=== PATIENT | female | born 1950 | race Caucasian/White ===

== ENCOUNTER 2017-05-18 15:14 | Inpatient (IN) | payer MEDICAID ==
--- NOTE | ~2017-05-18 | HEMODYNAMI ---
PATIENT:ELIZABETH ROBLES MEDICAL RECORD: [id number] : 54 LOCATION:[place] [address] ADMISSION DATE: 05/18/17 Generatedon:05/28/201713:05 Patient name: ELIZABETH ROBLES Patient #: [id number] SSN: : 1950 Date of study: 05/28/2017 Page: Of Hemodynamic Procedure Report Patient Data Patient Demographics Procedure consent was obtained First Name: ELIZABETH Gender: Female Last Name: MARGARET : 1950 Patient #: [id number] Age: 67 year(s) Race: Unknown Additional ID: [id number] Contact details [address]: [address] [place] [address] State: [place] City: [place] Zip code: [address] Past Medical History Allergies Allergen Reaction Date Comments Reported Sulfa drugs 05/28/2017 Admission Admission Data Admission Date: 05/18/2017 Admission Time: 21:33 Room #: [facility] Weight (lbs.): 160 Weight (kg.): 72.57 Procedure Procedure Types Cath Procedure Peripheral Cath Diagnostic Procedure Cath Peripheral Miscellaneous PARACENTESIS WITH GUIDE Procedure Description Procedure Date Procedure Date: 05/28/2017 Procedure Start Time: 12:20 Procedure Staff Name Function Clive Marinelli MD Performing Physician Jocy Bedolla RT Competitive Athlete Jocy Bedolla RT Monitor Cherie Lutz RN Nurse Cyril Garcia Nurse Procedure Medications Medication Administration Route Dosage Fentanyl I.V. 25 mcg Zofran I.V. 4 mg Fentanyl I.V. 25 mcg Hemodynamics Rest Heart Rate: 25 (bpm) Snapshots Pre Cath Intra NCS Post Cath Vital Signs Time Heart Resp SPO2 etCO2 NIBP Rhythm Pain Status Sedation Rate (ipm) (%) (mmHg) (mmHg) Level (bpm) 12:13:50 56 14 99 12 100/49(76) SB 0 (11) , No 10(A) pain 12:18:02 55 14 100 20.4 111/48(90) SB 0 (11) , No 10(A) pain 12:22:18 55 14 97 27.9 107/52(81) SB 0 (11) , No 10(A) pain 12:26:34 54 4 94 31.7 102/41(74) SB 2 (11) , 9(A) Uncomfortable 12:30:47 54 10 95 20.3 97/45(72) SB 0 (11) , No 9(A) pain 12:34:56 53 11 92 21.1 92/45(68) SB 0 (11) , No 9(A) pain 12:39:04 52 13 96 18.8 90/48(65) SB 0 (11) , No 9(A) pain 12:43:14 51 10 94 24.8 85/40(67) SB 0 (11) , No 9(A) pain 12:47:20 52 10 94 22.6 90/44(66) SB 0 (11) , No 9(A) pain 12:51:28 50 10 95 21.1 95/44(65) SB 0 (11) , No 9(A) pain 12:55:40 50 10 95 15.8 88/42(65) SB 0 (11) , No 9(A) pain 12:59:49 50 10 96 15 90/37(69) SB 0 (11) , No 9(A) pain 13:03:24 51 10 97 14.3 94/42(73) SB 0 (11) , No 9(A) pain Medications Time Medication Route Dose Verified Delivered Reason Notes Effectiven ess by by 12:20:59 Fentanyl I.V. 25 Clive Nam pain [facility] [place] Radha Marinelli MD 12:25:11 Fentanyl I.V. 25 Clive Nam pain [facility] [place] Radha Marinelli MD 12:27:13 Zofran I.V. 4 mg Clive Nam [facility] Radha Marinelli MD Procedure Log Time Note 11:58:57 Patient Weight : 160 lbs 12:01:26 Time tracking: Regular hours 12:02:27 Plan of Care:Hemodynamics will remain stable., Cardiac rhythm will remain stable., Comfort level will be maintained., Respiratory function will remain adequate., Patient/ family verbilizes understanding of procedure., Procedure tolerated without complication., Recovers from procedure without complications.. 12:04:29 Patient received from [place] to IR Alert and oriented. Tansferred to table in Supine position. 12:04:31 Correct patient and procedure confirmed by team. 12:04:37 Signed procedure consent form obtained from patient. 12:04:47 H&P Date Dictated: 05/28/2017 Within 30 days and on chart.. 12:04:50 Pre-procedure instructions explained to patient. 12:04:50 Pre-op teaching completed and patient verbalized understanding. 12:04:53 Family in waiting room. 12:04:58 Patient NPO since Breakfast. 12:05:11 Patient allergic to Sulfa drugs 12:05:16 Is patient on blood thinner?Yes 12:05:22 ACC The patient was administered the following blood thiners within the last 24 hours: ACCAspirin, ACCPlavix 12:05:26 Patient diabetic? Yes. 12:05:28 If diabetic: On Metformin? No 12:05:32 - 12:05:34 ----Pre-sedation anethsthesia assessment.---- 12:05:40 Previous problem with sedation/anesthesia? No ? 12:05:43 Snore? Yes 12:05:45 Sleep apnea? No 12:05:47 Deviated septum? No 12:05:49 Opens mouth fully? Yes 12:05:53 Sticks out tongue? Yes 12:05:58 Airway obstruction? No ?Heart ds. yes, chf 12:06:47 IV patent on arrival in left wrist with 0.9% NaCl at [facility]. 12:07:03 Right abdomen area was prepped with chlora-prep and draped in sterile fashion 12:12:34 ECG and BP/O2 sat monitors applied to patient. 12:12:36 Vital chart was started 12:12:37 Baseline sample Acquired. 12:12:41 Full Disclosure recording started 12:12:42 - 12:19:05 Physician arrived 12:20:23 --------ALL STOP TIME OUT------ 12:20:23 Final Timeout: patient, procedure, and site verified with staff and physician. All members of the team are in agreement. 12:20:34 Procedure started. 12:20:59 Fentanyl 25 mcg I.V. was administered by Cyril Garcia; pain; 12:25:11 Fentanyl 25 mcg I.V. was administered by Cyril Garcia; pain; 12:27:13 Zofran 4 mg I.V. was administered by Cyril Garcia; nausea; 12:28:16 [id number] 8FR CATH DRAIN TRAY opened to sterile field. 12:28:30 CONNECTING TUBE FOR DRAINAGE BAG ([id number]) opened to sterile field. 12:56:01 Tegaderm 4 x 4 ([id number]) opened to sterile field. 12:56:15 Dermabond Pen opened to sterile field. 13:04:18 13.5 liters drained 13:05:00 Procedure ended.(Physican Out) 13:05:07 Procedure and supply charges have been captured, reviewed, submitted an d are correct. 13:05:56 Vital chart was stopped Device Usage Item Name Manufacture Quantity Catalog Hospital Part Current Mini mal Lot# / Number Charge Number Stock Stock Serial# Code [id number] CareFusion 1 [id number] 5 8FR CATH DRAIN TRAY CONNECTING TUBE [place] 1 [id number] 5 FOR DRAINAGE Scientific BAG ([id number]) Tegaderm 4 x 4 3M 1 [id number] 5 ([id number]) Dermabond Pen Ethicon 1 [id number] 5 Signature Audit [place] Stage Time Signature Unsigned Intra-Procedure 05/28/2017 Jocy Bedolla 1:05:53 PM RT(R) Signatures Monitor : Jocy Bedolla RT Signature : Date : Time : [place] [address] [place] [address]
[2017-05-19 02:42] VITALS: BMI 29.7
[2017-05-19 03:51] VITALS: BP 93/45
[2017-05-19 06:33] VITALS: BP 90/43
[2017-05-19 06:40] LABS: BASOPHILS 0.2 % (0-2); EOSINOPHILS 4.3 % (0-7); HEMATOCRIT 30.2 % (36.0-48.0); HEMOGLOBIN 9.3 g/dL (12-16); IMMATURE GRANULOCYTES 0.2 % (0-5); LYMPHOCYTES 9.5 % (15-50); MCH 28.3 pg (26.0-34.0); MCHC 30.8 g/dL (31.0-37.0); MCV 91.8 fL (80.0-100.0); MEAN PLATELET VOLUME 9.6 fL (7.4-10.4); MONOCYTES 8.6 % (2-11); NEUTROPHILS 77.2 % (40-80); PLATELET COUNT 154 10x3/uL (130-400); RBC 3.29 10x6/uL (4.00-5.40); RDW 13.9 % (11.5-14.5); WBC 5.4 10x3/uL (4.8-10.8)
[2017-05-19 06:59] LABS: ALBUMIN 2.8 g/dL (3.4-5.0); ANION GAP 13.7 mmol/L (8-16); BILIRUBIN - TOTAL 0.44 mg/dL (0.2-1.3); CALCIUM 8.4 mg/dL (8.5-10.1); CARBON DIOXIDE 22.5 mmol/L (21.0-32.0); CREATININE - SERUM 2.5 mg/dL (0.6-1.3)
[2017-05-19 07:01] LABS: POTASSIUM - SERUM 6.2 mmol/L (3.5-5.1)
[2017-05-19 09:46] VITALS: BP 104/52
[2017-05-19] MEDS ORDERED: PLAVIX75 MG PO (11:03)
[2017-05-19] MEDS ORDERED: SYNTHROID175 MCG PO (12:40)
[2017-05-19] MEDS ORDERED: TORSEMIDE20 MG PO (12:41)
[2017-05-19] MEDS ORDERED: LISINOPRIL2.5 MG PO (12:41)
[2017-05-19] MEDS ORDERED: ALDACTONE50 MG PO (12:42)
[2017-05-19] MEDS ORDERED: LIPITOR20 MG PO (12:42)
[2017-05-19 14:05] LABS: APPEARANCE CLEAR (CLEAR); BILIRUBIN NEGATIVE (NEGATIVE); COLOR YELLOW (YELLOW); GLUCOSE NEGATIVE (NEGATIVE); KETONE NEGATIVE (NEGATIVE); NITRITE NEGATIVE (NEGATIVE); PROTEIN NEGATIVE (NEGATIVE); UROBILINOGEN NORMAL (NORMAL)
[2017-05-19 16:03] LABS: ALBUMIN 3.3 g/dL (3.4-5.0); BILIRUBIN - TOTAL 0.34 mg/dL (0.2-1.3); CALCIUM 8.3 mg/dL (8.5-10.1); CARBON DIOXIDE 23.1 mmol/L (21.0-32.0); CHOL - HDL RATIO 3.6 ratio (2.3-4.1); COMPLEMENT C4 14.3 mg/dL (17.4-52.2); CREATININE - SERUM 2.7 mg/dL (0.6-1.3); PHOSPHOROUS 4.5 mg/dL (2.5-4.9); PROTEIN - SERUM 5.8 g/dL (6.4-8.2)
[2017-05-19 16:09] VITALS: BP 90/50
[2017-05-19 16:20] LABS: ANION GAP 13.8 mmol/L (8-16)
[2017-05-19 16:21] LABS: POTASSIUM - SERUM 6.9 mmol/L (3.5-5.1)
[2017-05-19 20:30] VITALS: BP 84/50
[2017-05-20 00:30] VITALS: BP 78/54
[2017-05-20 04:30] VITALS: BP 80/50
[2017-05-20 05:11] LABS: HEMATOCRIT 29.2 % (36.0-48.0); HEMOGLOBIN 8.9 g/dL (12-16); MCH 28.7 pg (26.0-34.0); MCHC 30.5 g/dL (31.0-37.0); MCV 94.2 fL (80.0-100.0); MEAN PLATELET VOLUME 10.2 fL (7.4-10.4); PLATELET COUNT 137 10x3/uL (130-400); WBC 4.5 10x3/uL (4.8-10.8)
[2017-05-20 05:23] LABS: BASOPHILS 1 % (0-2); EOSINOPHILS 5 % (0-7); LYMPHOCYTES 10 % (15-50); MONOCYTES 16 % (2-11); NEUTROPHILS 68 % (40-80)
[2017-05-20 05:24] LABS: ALBUMIN 2.9 g/dL (3.4-5.0); ANION GAP 13.6 mmol/L (8-16); BILIRUBIN - TOTAL 0.4 mg/dL (0.2-1.3); CALCIUM 8.6 mg/dL (8.5-10.1); CREATININE - SERUM 2.9 mg/dL (0.6-1.3); PLATELET ESTIMATE NORMAL; PROTEIN - SERUM 5.7 g/dL (6.4-8.2)
[2017-05-20 05:36] LABS: POTASSIUM - SERUM 6.6 mmol/L (3.5-5.1)
[2017-05-20 08:32] VITALS: BP 89/40
[2017-05-20 11:46] VITALS: BP 81/60
[2017-05-20 13:21] VITALS: BMI 41.6
[2017-05-20 15:26] VITALS: BP 89/50
[2017-05-20 20:43] VITALS: BP 89/36
[2017-05-21] VITALS: BP 91/33
[2017-05-21 04:00] VITALS: BP 86/31
[2017-05-21 06:34] LABS: ALBUMIN 2.6 g/dL (3.4-5.0); ANION GAP 14.8 mmol/L (8-16); BILIRUBIN - TOTAL 0.3 mg/dL (0.2-1.3); CREATININE - SERUM 3.3 mg/dL (0.6-1.3); POTASSIUM - SERUM 5.8 mmol/L (3.5-5.1); PROTEIN - SERUM 5.5 g/dL (6.4-8.2)
[2017-05-21 06:59] LABS: HEMATOCRIT 28.6 % (36.0-48.0); HEMOGLOBIN 9.1 g/dL (12-16); LYMPHOCYTES 7.9 % (15-50); MCH 29.3 pg (26.0-34.0); MCHC 31.8 g/dL (31.0-37.0); MEAN PLATELET VOLUME 9.8 fL (7.4-10.4); NEUTROPHILS 77.8 % (40-80); PLATELET COUNT 169 10x3/uL (130-400); RBC 3.11 10x6/uL (4.00-5.40); RDW 14.1 % (11.5-14.5)
[2017-05-21 09:13] VITALS: BP 87/44
[2017-05-21 13:46] VITALS: BP 90/21
[2017-05-21 15:21] LABS: HEPATITIS C ANTIBODY 4.8 (0.0-0.9)
[2017-05-21 16:59] LABS: CREATININE - URINE 164.5 mg/dL (30-125); PRO/CRE RATIO URINE 0.8 mg/g; PROTEIN - URINE 128.2 mg/dL (0.0-11.9)
[2017-05-21 17:46] VITALS: BP 74/25
[2017-05-21 20:00] VITALS: BP 77/31
[2017-05-22] VITALS: BP 91/41
[2017-05-22 04:00] VITALS: BP 92/54
[2017-05-22 06:00] LABS: BASOPHILS 0.2 % (0-2); EOSINOPHILS 3.4 % (0-7); HEMATOCRIT 27.7 % (36.0-48.0); HEMOGLOBIN 8.7 g/dL (12-16); IMMATURE GRANULOCYTES 0.2 % (0-5); MCH 28.4 pg (26.0-34.0); MCHC 31.4 g/dL (31.0-37.0); MCV 90.5 fL (80.0-100.0); MEAN PLATELET VOLUME 9.9 fL (7.4-10.4); MONOCYTES 9.6 % (2-11); NEUTROPHILS 75.6 % (40-80); PLATELET COUNT 169 10x3/uL (130-400); RBC 3.06 10x6/uL (4.00-5.40); RDW 13.7 % (11.5-14.5); WBC 4.7 10x3/uL (4.8-10.8)
[2017-05-22 06:22] LABS: APTT 34.1 SECONDS (22.8-39.4); INR 1.25 (0.85-1.17); PROTIME 15.2 SECONDS (11.6-15.0)
[2017-05-22 06:25] LABS: % SATURATION 5 % (15-55); IRON 13 ug/dl (35-150); TOTAL IRON BIND CAPACITY 237 ug/dl (260-445); UNSAT IRON BIND CAPACITY 224 ug/dl (150-375)
[2017-05-22 06:35] LABS: ALBUMIN 2.5 g/dL (3.4-5.0); BILIRUBIN - TOTAL 0.27 mg/dL (0.2-1.3); CALCIUM 7.8 mg/dL (8.5-10.1); CARBON DIOXIDE 23.2 mmol/L (21.0-32.0); CHOL - HDL RATIO 4.3 ratio (2.3-4.1); CREATININE - SERUM 3.2 mg/dL (0.6-1.3); LDL-HDL RATIO 2.6 ratio (1.5-3.5); PRE-ALBUMIN 9.9 mg/dL (18.0-35.7); PROTEIN - SERUM 5.3 g/dL (6.4-8.2)
[2017-05-22 06:36] LABS: ANION GAP 14.5 mmol/L (8-16); POTASSIUM - SERUM 4.7 mmol/L (3.5-5.1)
[2017-05-22 07:29] LABS: ANA REFLEX - DBL STRANDED DNA 3 IU/mL (0-9); ANA REFLEX - DIRECT Negative (Negative)
[2017-05-22 09:10] VITALS: BP 111/42
[2017-05-22 10:20] LABS: SPE - A/G RATIO 1.4 (0.7-1.7); SPE - ALBUMIN 3.3 g/dL (2.9-4.4); SPE - ALPHA-1 GLOBULIN 0.3 g/dL (0.0-0.4); SPE - ALPHA-2 GLOBULIN 0.6 g/dL (0.4-1.0); SPE - BETA GLOBULIN 0.7 g/dL (0.7-1.3); SPE - GAMMA GLOBULIN 0.8 g/dL (0.4-1.8); SPE - M-SPIKE Not Observed g/dL (Not Observed); SPE - TOTAL PROTEIN 5.7 g/dL (6.0-8.5)
[2017-05-22 10:20] LABS: UPE RAND - ALBUMIN 15.6 % (()); UPE RAND - ALPHA 1 GLOBULIN 5.3 % (()); UPE RAND - ALPHA 2 GLOBULIN 9.9 % (()); UPE RAND - BETA GLOBULIN 18.2 % (()); UPE RAND - GAMMA GLOBULIN 50.9 % (())
[2017-05-22 12:16] VITALS: BP 93/47
[2017-05-22 16:45] VITALS: BP 100/46
[2017-05-22 20:00] VITALS: BP 87/36
[2017-05-23 05:30] LABS: BASOPHILS 0.4 % (0-2); EOSINOPHILS 5.2 % (0-7); HEMATOCRIT 28.4 % (36.0-48.0); HEMOGLOBIN 8.9 g/dL (12-16); IMMATURE GRANULOCYTES 0.4 % (0-5); LYMPHOCYTES 10.7 % (15-50); MCH 28.4 pg (26.0-34.0); MCHC 31.3 g/dL (31.0-37.0); MCV 90.7 fL (80.0-100.0); MEAN PLATELET VOLUME 9.8 fL (7.4-10.4); MONOCYTES 9.1 % (2-11); NEUTROPHILS 74.2 % (40-80); PLATELET COUNT 180 10x3/uL (130-400); RBC 3.13 10x6/uL (4.00-5.40); RDW 13.9 % (11.5-14.5); WBC 5.4 10x3/uL (4.8-10.8)
[2017-05-23 05:42] LABS: ALBUMIN 2.5 g/dL (3.4-5.0); ANION GAP 14.7 mmol/L (8-16); BILIRUBIN - TOTAL 0.34 mg/dL (0.2-1.3); CALCIUM 7.8 mg/dL (8.5-10.1); CARBON DIOXIDE 23.8 mmol/L (21.0-32.0); CREATININE - SERUM 2.9 mg/dL (0.6-1.3); POTASSIUM - SERUM 4.5 mmol/L (3.5-5.1); PROTEIN - SERUM 5.1 g/dL (6.4-8.2)
[2017-05-23 06:12] VITALS: BP 89/44
[2017-05-23 08:38] VITALS: BP 103/47
[2017-05-23 10:19] LABS: ANA REFLEX - DIRECT Negative (Negative)
[2017-05-23 12:30] VITALS: BP 91/50
[2017-05-23 18:09] LABS: EBV VIRAL CAPSID AB IGG >600.0 U/mL (0.0-17.9); EBV VIRAL CAPSID AB IGM <36.0 U/mL (0.0-35.9)
[2017-05-23 20:00] VITALS: BP 95/50
[2017-05-24 04:00] VITALS: BP 100/50
[2017-05-24 05:18] LABS: ALBUMIN 2.8 g/dL (3.4-5.0); ANION GAP 14.9 mmol/L (8-16); BILIRUBIN - TOTAL 0.4 mg/dL (0.2-1.3); CARBON DIOXIDE 24.1 mmol/L (21.0-32.0); CREATININE - SERUM 2.7 mg/dL (0.6-1.3); PROTEIN - SERUM 6.1 g/dL (6.4-8.2)
[2017-05-24 05:20] LABS: BASOPHILS 0.2 % (0-2); EOSINOPHILS 5.2 % (0-7); HEMATOCRIT 30.6 % (36.0-48.0); HEMOGLOBIN 9.6 g/dL (12-16); IMMATURE GRANULOCYTES 0.3 % (0-5); LYMPHOCYTES 10.2 % (15-50); MCH 28.5 pg (26.0-34.0); MCHC 31.4 g/dL (31.0-37.0); MCV 90.8 fL (80.0-100.0); MEAN PLATELET VOLUME 9.3 fL (7.4-10.4); MONOCYTES 7.3 % (2-11); NEUTROPHILS 76.8 % (40-80); PLATELET COUNT 197 10x3/uL (130-400); RBC 3.37 10x6/uL (4.00-5.40); RDW 13.8 % (11.5-14.5); WBC 6.3 10x3/uL (4.8-10.8)
[2017-05-24 08:48] VITALS: BP 172/90
[2017-05-24 09:03] VITALS: BMI 41.6
[2017-05-24 11:46] VITALS: BP 101/50
[2017-05-24 16:35] VITALS: BP 96/49
[2017-05-24 20:42] VITALS: BP 85/33
[2017-05-25 01:43] VITALS: BP 102/65
[2017-05-25 04:00] LABS: BASOPHILS 0.2 % (0-2); EOSINOPHILS 6.3 % (0-7); HEMATOCRIT 27.2 % (36.0-48.0); HEMOGLOBIN 8.6 g/dL (12-16); IMMATURE GRANULOCYTES 0.2 % (0-5); LYMPHOCYTES 11.3 % (15-50); MCH 28.6 pg (26.0-34.0); MCHC 31.6 g/dL (31.0-37.0); MCV 90.4 fL (80.0-100.0); MEAN PLATELET VOLUME 9.7 fL (7.4-10.4); MONOCYTES 9.1 % (2-11); NEUTROPHILS 72.9 % (40-80); PLATELET COUNT 166 10x3/uL (130-400); RBC 3.01 10x6/uL (4.00-5.40); RDW 13.9 % (11.5-14.5)
[2017-05-25 04:01] LABS: INR 1.15 (0.85-1.17); PROTIME 14.3 SECONDS (11.6-15.0); WBC 4.6 10x3/uL (4.8-10.8)
[2017-05-25 04:16] LABS: ALBUMIN 2.6 g/dL (3.4-5.0); ANION GAP 12.9 mmol/L (8-16); BILIRUBIN - TOTAL 0.26 mg/dL (0.2-1.3); CALCIUM 8.2 mg/dL (8.5-10.1); CARBON DIOXIDE 23.4 mmol/L (21.0-32.0); CREATININE - SERUM 2.7 mg/dL (0.6-1.3); POTASSIUM - SERUM 4.3 mmol/L (3.5-5.1); PROTEIN - SERUM 5.5 g/dL (6.4-8.2)
[2017-05-25 05:10] VITALS: BP 100/60
[2017-05-25 08:16] VITALS: BP 106/70
[2017-05-25 11:18] VITALS: BP 107/70
[2017-05-25 15:33] VITALS: BP 110/72
[2017-05-25 22:15] VITALS: BP 90/60
[2017-05-26 01:30] VITALS: BP 88/40
[2017-05-26 03:59] LABS: BASOPHILS 0.2 % (0-2); EOSINOPHILS 5.1 % (0-7); HEMATOCRIT 28.8 % (36.0-48.0); HEMOGLOBIN 8.9 g/dL (12-16); IMMATURE GRANULOCYTES 0.2 % (0-5); LYMPHOCYTES 10.5 % (15-50); MCH 28.2 pg (26.0-34.0); MCHC 30.9 g/dL (31.0-37.0); MCV 91.1 fL (80.0-100.0); MEAN PLATELET VOLUME 9.4 fL (7.4-10.4); MONOCYTES 8.2 % (2-11); NEUTROPHILS 75.8 % (40-80); RBC 3.16 10x6/uL (4.00-5.40); RDW 13.8 % (11.5-14.5); WBC 5.1 10x3/uL (4.8-10.8)
[2017-05-26 04:00] LABS: PLATELET COUNT 116 10x3/uL (130-400)
[2017-05-26 04:35] LABS: ALBUMIN 2.7 g/dL (3.4-5.0); ANION GAP 15.4 mmol/L (8-16); BILIRUBIN - TOTAL 0.29 mg/dL (0.2-1.3); CALCIUM 8.2 mg/dL (8.5-10.1); CARBON DIOXIDE 22.1 mmol/L (21.0-32.0); CREATININE - SERUM 3.2 mg/dL (0.6-1.3); POTASSIUM - SERUM 4.5 mmol/L (3.5-5.1); PROTEIN - SERUM 5.8 g/dL (6.4-8.2)
[2017-05-26 06:20] VITALS: BP 86/38
[2017-05-26 08:33] VITALS: BP 110/82
[2017-05-26 11:07] LABS: MITOCHONDRIAL ANTIBODY 5.6 Units (0.0-20.0); SMOOTH MUSCLE ABS (ACTIN) 20 Units (0-19)
[2017-05-26 16:29] VITALS: BP 110/76
[2017-05-26 18:23] LABS: CREATININE - URINE 150.2 mg/dL (30-125)
[2017-05-26 18:33] LABS: APPEARANCE TURBID (CLEAR); BILIRUBIN NEGATIVE (NEGATIVE); COLOR YELLOW (YELLOW); GLUCOSE NEGATIVE (NEGATIVE); KETONE NEGATIVE (NEGATIVE); NITRITE NEGATIVE (NEGATIVE); PROTEIN 2+ mg/dL (NEGATIVE); UROBILINOGEN NORMAL (NORMAL)
[2017-05-26 18:37] LABS: AMORPHOUS SEDIMENT >1+ /lpf (NONE SEEN); BACTERIA MANY /hpf (NONE SEEN); GRANULAR CAST OCC /lpf (NONE SEEN); MUCUS <1+ /lpf (NONE SEEN); RED CELL CAST 0-5 /lpf (NONE SEEN); RED CELLS - URINE >50 /hpf (0-5); WHITE CELLS - URINE >50 /hpf (0-5); YEAST >1+ /hpf (NONE SEEN)
[2017-05-26 18:41] LABS: ALBUMIN 3.3 g/dL (3.4-5.0); ANION GAP 20.1 mmol/L (8-16); CALCIUM 8.1 mg/dL (8.5-10.1); CARBON DIOXIDE 17.7 mmol/L (21.0-32.0); CREATININE - SERUM 3.5 mg/dL (0.6-1.3); PHOSPHOROUS 5.3 mg/dL (2.5-4.9); POTASSIUM - SERUM 4.8 mmol/L (3.5-5.1)
[2017-05-26 20:00] VITALS: BP 105/50
[2017-05-27] VITALS (7 sets, daily range): BP systolic 80–95; BP diastolic 36–60
[2017-05-27 05:40] LABS: BASOPHILS 0.5 % (0-2); EOSINOPHILS 5.9 % (0-7); HEMATOCRIT 25.3 % (36.0-48.0); HEMOGLOBIN 7.9 g/dL (12-16); IMMATURE GRANULOCYTES 0.2 % (0-5); LYMPHOCYTES 12.3 % (15-50); MCH 28.4 pg (26.0-34.0); MCHC 31.2 g/dL (31.0-37.0); MEAN PLATELET VOLUME 8.9 fL (7.4-10.4); MONOCYTES 10.3 % (2-11); NEUTROPHILS 70.8 % (40-80); PLATELET COUNT 124 10x3/uL (130-400); RBC 2.78 10x6/uL (4.00-5.40); RDW 13.8 % (11.5-14.5); WBC 4.1 10x3/uL (4.8-10.8)
[2017-05-27 05:58] LABS: ALBUMIN 3.1 g/dL (3.4-5.0); BILIRUBIN - TOTAL 0.4 mg/dL (0.2-1.3); CALCIUM 7.6 mg/dL (8.5-10.1); CARBON DIOXIDE 21.6 mmol/L (21.0-32.0); CREATININE - SERUM 3.7 mg/dL (0.6-1.3); POTASSIUM - SERUM 4.6 mmol/L (3.5-5.1); PROTEIN - SERUM 5.5 g/dL (6.4-8.2)
[2017-05-27 07:54] LABS: INR 1.3 (0.85-1.17); PROTIME 15.8 SECONDS (11.6-15.0)
[2017-05-28] VITALS (13 sets, daily range): BP systolic 72–102; BP diastolic 32–338
[2017-05-28 05:44] LABS: BASOPHILS 0.3 % (0-2); EOSINOPHILS 5.5 % (0-7); HEMATOCRIT 29.3 % (36.0-48.0); HEMOGLOBIN 9.3 g/dL (12-16); IMMATURE GRANULOCYTES 0.3 % (0-5); MCH 28.4 pg (26.0-34.0); MCHC 31.7 g/dL (31.0-37.0); MCV 89.6 fL (80.0-100.0); MEAN PLATELET VOLUME 10.1 fL (7.4-10.4); MONOCYTES 11.2 % (2-11); NEUTROPHILS 72.7 % (40-80); RBC 3.27 10x6/uL (4.00-5.40); RDW 14.1 % (11.5-14.5)
[2017-05-28 05:52] LABS: PLATELET COUNT 152 10x3/uL (130-400)
[2017-05-28 06:14] LABS: ALBUMIN 3.6 g/dL (3.4-5.0); ANION GAP 17.3 mmol/L (8-16); BILIRUBIN - TOTAL 0.74 mg/dL (0.2-1.3); CALCIUM 8.5 mg/dL (8.5-10.1); CARBON DIOXIDE 21.7 mmol/L (21.0-32.0); CREATININE - SERUM 3.9 mg/dL (0.6-1.3); PROTEIN - SERUM 5.9 g/dL (6.4-8.2)
[2017-05-28 15:24] LABS: PROTEIN - BODY FLUID 3.3 G/DL
[2017-05-28 15:52] LABS: MACROPHAGES BF 39 %; MESOTHELIALS BF 18 %; NEUT - BF 13 %
[2017-05-29 01:20] VITALS: BP 82/44
[2017-05-29 05:46] LABS: BASOPHILS 0.2 % (0-2); EOSINOPHILS 4.5 % (0-7); HEMATOCRIT 30.2 % (36.0-48.0); HEMOGLOBIN 9.6 g/dL (12-16); IMMATURE GRANULOCYTES 0.4 % (0-5); LYMPHOCYTES 13.7 % (15-50); MCH 28.2 pg (26.0-34.0); MCHC 31.8 g/dL (31.0-37.0); MCV 88.8 fL (80.0-100.0); MONOCYTES 8.6 % (2-11); NEUTROPHILS 72.6 % (40-80); PLATELET COUNT 160 10x3/uL (130-400); RDW 14.1 % (11.5-14.5); WBC 5.6 10x3/uL (4.8-10.8)
[2017-05-29 06:03] LABS: ANION GAP 17.8 mmol/L (8-16); BILIRUBIN - TOTAL 0.6 mg/dL (0.2-1.3); CALCIUM 7.7 mg/dL (8.5-10.1); CARBON DIOXIDE 20.9 mmol/L (21.0-32.0); CREATININE - SERUM 3.8 mg/dL (0.6-1.3); POTASSIUM - SERUM 4.7 mmol/L (3.5-5.1); PROTEIN - SERUM 5.2 g/dL (6.4-8.2)
[2017-05-29 06:40] VITALS: BP 89/42
[2017-05-29 08:35] VITALS: BP 94/32
[2017-05-29 11:59] VITALS: BP 94/42
[2017-05-29 15:24] VITALS: BP 104/50
[2017-05-29 20:36] VITALS: BP 100/32
[2017-05-30 00:29] VITALS: BP 91/91
[2017-05-30 04:29] VITALS: BP 97/41
[2017-05-30 05:10] LABS: BASOPHILS 0.2 % (0-2); EOSINOPHILS 3.5 % (0-7); HEMATOCRIT 30.3 % (36.0-48.0); HEMOGLOBIN 9.6 g/dL (12-16); IMMATURE GRANULOCYTES 0.5 % (0-5); LYMPHOCYTES 11.4 % (15-50); MCH 28.3 pg (26.0-34.0); MCHC 31.7 g/dL (31.0-37.0); MCV 89.4 fL (80.0-100.0); MEAN PLATELET VOLUME 9.5 fL (7.4-10.4); MONOCYTES 8.3 % (2-11); NEUTROPHILS 76.1 % (40-80); PLATELET COUNT 161 10x3/uL (130-400); RBC 3.39 10x6/uL (4.00-5.40); RDW 14.1 % (11.5-14.5); WBC 6.2 10x3/uL (4.8-10.8)
[2017-05-30 05:44] LABS: ALBUMIN 2.8 g/dL (3.4-5.0); ANION GAP 14.7 mmol/L (8-16); BILIRUBIN - TOTAL 0.56 mg/dL (0.2-1.3); CALCIUM 8.2 mg/dL (8.5-10.1); CARBON DIOXIDE 22.9 mmol/L (21.0-32.0); CREATININE - SERUM 3.3 mg/dL (0.6-1.3); POTASSIUM - SERUM 4.6 mmol/L (3.5-5.1); PROTEIN - SERUM 5.2 g/dL (6.4-8.2)
[2017-05-30 07:55] VITALS: BP 90/40
[2017-05-30] MEDS ORDERED: COREG 3.1253.125 MG PO (09:35)
[2017-05-30] MEDS ORDERED: MIDODRINE HCL5 MG PO (09:35)
[2017-05-30 12:10] VITALS: BP 93/40
== END 2017-05-30 15:43 | disposition home health service (06) | DRG 682 ==
LOC: D.M2 15:14 → D.SDCHOLD 05-24 16:16 → D.M2 05-24 16:17
PROVIDERS: Emergency Medicine; General Practice; Internal Medicine Gastroenterology; Internal Medicine Nephrology; Specialist
PROC: 0W9G3ZZ Drainage of Peritoneal Cavity, Percutaneous Approach (ICD-10-PCS; principal; 2017-05-28 12:20)
DX: N17.9 Acute kidney failure, unspecified (principal); I50.33 Acute on chronic diastolic (congestive) heart failure; R18.8 Other ascites; E87.1 Hypo-osmolality and hyponatremia; E87.5 Hyperkalemia; I11.0 Hypertensive heart disease with heart failure; E78.5 Hyperlipidemia, unspecified; E11.9 Type 2 diabetes mellitus without complications; K21.9 Gastro-esophageal reflux disease without esophagitis; I25.10 Atherosclerotic heart disease of native coronary artery without angina pectoris; Z95.1 Presence of aortocoronary bypass graft; E03.9 Hypothyroidism, unspecified; B19.20 Unspecified viral hepatitis C without hepatic coma; I08.3 Combined rheumatic disorders of mitral, aortic and tricuspid valves; I95.9 Hypotension, unspecified